=== PATIENT | female | born 1990 | race Caucasian/White ===

== ENCOUNTER 2018-01-24 11:09 | Observation (INO) ==
[2018-01-24 11:50] VITALS: BMI 27.3
[2018-01-24] MEDS ORDERED: DEMEROL 50 MG/ML VIAL IVP PRN (13:38)
[2018-01-24] MEDS ORDERED: ZOFRAN 4 MG/2 ML IVP PRN (13:38)
[2018-01-24] MEDS: POTASSIUM CHLORIDE 10 MEQ VIAL 10 MEQ in SODIUM CHLORIDE 1,000 ML IV SCH (14:33)
[2018-01-24] MEDS: PROTONIX IV IVP SCH (14:35)
[2018-01-24] MEDS: TYLENOL PO PRN (14:46)
[2018-01-25] MEDS ORDERED: POTASSIUM CHLORIDE 10 MEQ VIAL IV ONE ×2 (00:08→11:02)
[2018-01-25] MEDS: POTASSIUM CHLORIDE 10 MEQ VIAL 10 MEQ in SODIUM CHLORIDE 1,000 ML IV SCH ×2 (00:13→11:03)
[2018-01-25] MEDS: TYLENOL PO PRN (00:15)
[2018-01-25] MEDS: PROTONIX IV IVP SCH (08:48)
[2018-01-25 09:37] VITALS: BP 104/72; TEMP 97.9
--- NOTE | 2018-01-25 15:38 | PN ---
DATE OF SERVICE: 01/25/18 SUBJECTIVE: The patient was admitted from the office yesterday for the acute gastritis and food poison. The patient with the given IV fluids and Zofran and Protonix now the patient is tolerating the clear liquids and wants to eat some food. REVIEW OF SYSTEMS: CONSTITUTIONAL: No fever, no chills. HEENT: Normal. ENDOCRINE: No weight gain, no weight loss. CVS: No angina symptoms. No CHF symptoms. No palpitations. No atypical chest pain for CAD. No shortness of breath. No PND, no orthopnea. RESPIRATORY: No cough, no hemoptysis. GI: No nausea, no vomiting. No abdominal pain. One diarrhea today morning. : No hematuria. No polyuria. MUSCULOSKELETAL: No joint swelling. PSYCHIATRIC: Not anxious. No depression. No suicidal thoughts. No homicidal thoughts. SKIN: Intact. No rash. PHYSICAL EXAMINATION: V/S: Blood pressure 109/72, respiratory 14, heart rate 88, temperature 98.0 with saturation 100%. HEENT: Normocephalic, atraumatic. NECK: Supple. No JVD, no carotid bruit. No lymphadenopathy. LUNGS: Clear to auscultation. No rales or rhonchi. HEART: S1, S2 normal. No S3. No murmur, gallop or regurgitation. ABDOMEN: Mild epigastric discomfort. Soft, nontender. Bowel sounds active. No rigidity. No rebound or guarding. No CVA tenderness. EXTREMITIES: No cyanosis, clubbing or pedal edema. MUSCULOSKELETAL: No joint swelling. NEUROLOGIC: Awake, alert, oriented times three. No focal deficit. LYMPHATIC: No lymph nodes palpable. SKIN: Intact. LABS: WBC 7.99, hgb 15.2, hct 43.2, plt count 239, sodium 137, potassium 3.7, chloride 108, bicarb 20, BUN 9, creatinine 0.70 and glucose 79. ASSESSMENT: 1. Acute food poisoning 2. Gastroenteritis 3. Dehydration PLAN: 1. Clear liquid diet advance as tolerated 2. IV fluids 3. Zofran TIME SPENT: More than 35 minutes MTDD
--- NOTE | 2018-02-01 08:20 | DS ---
DATE OF SERVICE: 01/25/18 FINAL DIAGNOSIS: 1. Acute gastroenteritis 2. Food poisoning 3. Dehydration 4. Hyperglycemia 5. Palpitations DISCHARGE INSTRUCTIONS: Discharge the patient home. Followup in the [facility] within 4-5 days. MEDICATIONS AT DISCHARGE/NEW PRESCRIPTIONS: Zofran PRN DIET INSTRUCTIONS: Continue soft diet for 3-4 days then go to regular diet ACTIVITY: As much as tolerated DISEASE SPECIFIC EDUCATION: Dehydration Food poisoning Nausea/vomiting Probiotics HOSPITAL COURSE: Doug Neri 27 year old female, healthy lady went to the [facility] in the [facility] had some dinner and started vomiting, nausea and not able to keep anything down. Came to the office was light headed and dizzy at that time the patient was admitted to the hospital and started on the IV fluids and nausea medication which did help her. The patient felt better and did not have any complications during the hospital stay and by next day the patient was feeling a lot better and started keeping down the clear liquid diet and advanced the diet to soft diet which she was able to keep it down. At that time being discharged home and advised to continue with the soft diet for two more days then gradually get to the regular diet. TIME SPENT: MORE THAN 65 MINUTES KAREN
== END 2018-01-25 13:50 | disposition home or self-care (01) ==
LOC: MEDSURG B 11:09
PROVIDERS: ADMIT Emergency Medicine; ATTEND Emergency Medicine
DX: A05.9 Bacterial foodborne intoxication, unspecified (principal); R11.2 Nausea with vomiting, unspecified; T62.91XA Toxic effect of unspecified noxious substance eaten as food, accidental (unintentional), initial encounter; E86.0 Dehydration; R73.9 Hyperglycemia, unspecified; R00.2 Palpitations
CPT/HCPCS: 36415; 80053; 81001; 81025; 82150; 83690; 85025; 96361; 96365; 96366; 99217; 99220